=== PATIENT | male | born 1995 | race African-American/Black ===

== ENCOUNTER 2019-09-30 19:06 | Emergency (ER) | payer MEDICAID ==
[~2019-09-30] VITALS: Ht 170.2 cm; Wt 70.0 kg
[2019-09-30] MEDS ORDERED: IBUPROFEN 600MG TABLET PO STA (22:10)
[2019-09-30] MEDS ORDERED: KETOROLAC 60MG/2ML VIAL IM STA (22:14)
[2019-09-30 22:26] VITALS: BP 124/77
== END 2019-10-01 00:31 | disposition home or self-care (01) ==
LOC: ER 19:06
DX: S80.12XA Contusion of left lower leg, initial encounter (principal); M79.605 Pain in left leg; I78.0 Hereditary hemorrhagic telangiectasia; V03.00XA Pedestrian on foot injured in collision with car, pick-up truck or van in nontraffic accident, initial encounter; Y93.89 Activity, other specified; Y92.413 State road as the place of occurrence of the external cause
CPT/HCPCS: 73590; 96372; 99283; J1885